=== PATIENT | female | born 1965 | race American Indian/Alaskan Native ===

== ENCOUNTER 2017-07-03 08:45 | Emergency (ER) | payer MEDICARE ==
[2017-07-03 09:26] VITALS: BP 163/84
--- NOTE | 2017-07-03 11:13 | Emergency Department Report ---
ED Rash HPI - HPI Chief Complaint: Skin/Abscess/Foreign Body Stated Complaint: INSECT BITES Time Seen by Provider: 07/03/17 10:44 Duration: 3 Days Location: Back, Abdomen Rash Symptoms: Yes Itching, No Facial Swelling, No Tongue/Oral Swelling, No Breathing Difficulties, No Choking Sensation, No Wheezing/Dyspnea, No Peeling, No Blistering, No Fever, No Lightheaded, No Malaise, No Myalgias Severity: mild, moderate ED Review of Systems ROS: Stated complaint: INSECT BITES Other details as noted in HPI Comment: All other systems reviewed and negative Constitutional: no symptoms reported Respiratory: no symptoms reported Endocrine: no symptoms reported Skin: other (BITES) ED Past Medical Hx - Past Medical History Hx Hypertension: Yes Hx Diabetes: Yes Hx Arthritis: Yes Hx Kidney Stones: Yes Hx Psychiatric Treatment: Yes Additional medical history: Obesity - Surgical History Past Surgical History?: Yes Additional Surgical History: Hernia repair, c section, - Social History Smoking Status: Current Every Day Smoker Substance Use Type: None - Medications Home Medications: Home Medications Medication Instructions Recorded Confirmed Last Taken Type methylPREDNISolone [Medrol] 4 mg PO DAILY #1 tab.ds.pk 07/03/17 Unknown Rx Cephalexin [Keflex] 500 mg PO Q8HR 10 Days #30 cap 07/12/17 Unknown Rx hydrOXYzine HCL [Atarax] 25 mg PO Q6HR PRN 5 Days #20 tablet 07/12/17 Unknown Rx Rash Exam - Exam General: Vital signs noted. No distress. Alert and acting appropriately. HEENT: No Periorbital Edema, No Conjuctival Injection, No Chemosis, No Perioral Edema, No Tongue Edema, No Uvular Edema, No Compromised Airway, No Drooling Lungs: Yes Good Air Exchange, No Wheezes, No Ronchi, No Stridor, No Cough, No Labored Respirations, No Retractions, No Use of Accessory Muscles, No Other Abnormal Lung Sounds Heart: Yes Regular, No Murmur Skin: Yes Erythema (RED FLAT BITE REID ), No Urticarial Rash, No Maculopapular Rash, No Morbilliform rash, No Bulla(e), No Excoriations, No Weeping, No Tenderness, No Edema, No Encrustations Other: Positive: Abdomen Normal, Neurologic Normal, Musculoskeletal Normal ED Course Vital Signs 07/03/17 09:21 Temperature 98.8 F Pulse Rate 96 H Respiratory 16 Rate Blood Pressure 163/84 O2 Sat by Pulse 99 Oximetry - Reevaluation(s) Reevaluation #1: TO ER W RED INSECT BITES ON HER BODY SHE REPORTS SLEEPING IN HOTEL AND TRAVELING NO FEVER NON TOXIC ABC INTACT ITCHING OTC NOT HELPING NO EXPOSURE TO ALLERGEN MEDICATED IN ER DO NOT APPEAR TO BE BED BUGS OR SCABIES DISCUSSED W PT SHE HAS BEEN INSTRUCTED ON WHAT TO WATCH FOR- PROGRESSING, FEVER, INFECTION SHE HAS BEEN ENCOURAGED TO STOP SCRATCHING OR THEY WILL GET INFECTED DC HOME W DC POC ED Medical Decision Making - Medical Decision Making SEE NOTE - Differential Diagnosis RASH RO SCABIES OR BEDBUGS Critical care attestation.: If time is entered above; I have spent that time in minutes in the direct care of this critically ill patient, excluding procedure time. ED Disposition Clinical Impression: Rash, Insect bite Disposition: DC-01 TO HOME OR SELFCARE Is pt being admited?: No Does the pt Need Aspirin: No Condition: Stable Instructions: Acute Rash (ED), Insect Bite or Sting (ED) Additional Instructions: MEDS ORDERED TODAY CONTINUE HOME BENADRYL DO NOT SCRATCH AT BITES FOLLOW UP PCP OR DERM Prescriptions: methylPREDNISolone [Medrol] 4 mg PO DAILY #1 tab.ds.pk Referrals: PRIMARY CARE, [Primary Care Provider] - 3-5 Days Time of Disposition: 11:23
[2017-07-03] MEDS ORDERED: DECADRON IM ONE (11:22)
[2017-07-03] MEDS ORDERED: BENADRYL PO ONE (11:25)
== END 2017-07-03 11:39 | disposition home or self-care (01) ==
LOC: ED 08:45
DX: R21 Rash and other nonspecific skin eruption (principal); I10 Essential (primary) hypertension; E11.9 Type 2 diabetes mellitus without complications; M19.90 Unspecified osteoarthritis, unspecified site; F17.200 Nicotine dependence, unspecified, uncomplicated
CPT/HCPCS: 96372; 99282; J1100

== ENCOUNTER 2017-07-12 20:01 | Emergency (ER) | payer MEDICARE ==
[2017-07-12 20:17] VITALS: BP 155/88
--- NOTE | 2017-07-12 21:07 | Emergency Department Report ---
ED Recheck HPI - General Chief Complaint: Skin Rash Stated Complaint: MED REFILL FOR ALLERGIC REACTION Time Seen by Provider: 07/12/17 21:04 Source: patient Mode of arrival: Ambulatory Limitations: No Limitations - History of Present Illness Initial Comments: here report that she is here for recheck because she has bedbugs in the place that she lived and she has bedbug bites on her legs and she was here on 07 03 for similar problems and was treated with Medrol Dosepak. Patient said she is here to get a refill on the Medrol Dosepak because she still lives in the same area and she will be able to leave until August. Denies any shortness of breath or chest tightness. Denies any wheezing or coughing. Records show the patient was treated for skin rash with Medrol Dosepak on 2013. Patient reports pain and redness to bedbug sites and she is diabetic so she wants to make sure that she is okay. Itching to sites and that she has been scratching at the area. Denies any fever or chills. Complaint: medication refill request Onset/Timin -: days(s) Initial Visit For: other (skin rash) Returns Today for: request for prescription Symptoms Since Prior Visit: worsening redness (report bedbugs inside is not getting better and draining.) Context: ran out of medication Associated Symptoms: rash. denies: fever, chills, chest pain, shortness of breath, malaise, nasuea, abdominal pain Treatments Prior to Arrival: other ( given steroids and initial visit) - Related Data Previous Rx's Medication Instructions Recorded Last Taken Type methylPREDNISolone [Medrol] 4 mg PO DAILY #1 tab.ds.pk 07/03/17 Unknown Rx Cephalexin [Keflex] 500 mg PO Q8HR 10 Days #30 cap 07/12/17 Unknown Rx hydrOXYzine HCL [Atarax] 25 mg PO Q6HR PRN 5 Days #20 tablet 07/12/17 Unknown Rx Allergies Allergy/AdvReac Type Severity Reaction Status Date / Time oxycodone [From Percocet] Allergy Headache Verified 07/03/17 09:21 ED Review of Systems ROS: Stated complaint: MED REFILL FOR ALLERGIC REACTION Other details as noted in HPI Comment: All other systems reviewed and negative Constitutional: no symptoms reported Respiratory: no symptoms reported Cardiovascular: denies: chest pain, palpitations, dyspnea on exertion, edema, syncope, paroxysmal nocturnal dyspnea Gastrointestinal: denies: abdominal pain, nausea, vomiting, constipation, hematemesis, melena Musculoskeletal: denies: back pain, joint swelling, arthralgia, myalgia Skin: rash, pruritus Neurological: denies: headache, numbness, paresthesias, confusion, abnormal gait , vertigo ED Past Medical Hx - Past Medical History Previous Medical History?: Yes Hx Hypertension: Yes Hx Diabetes: Yes Hx Arthritis: Yes Hx Kidney Stones: Yes Hx Psychiatric Treatment: Yes Additional medical history: Obesity - Surgical History Past Surgical History?: Yes Additional Surgical History: Hernia repair, c section, - Family History Family history: diabetes, hypertension - Social History Smoking Status: Current Every Day Smoker Substance Use Type: None - Medications Home Medications: Home Medications Medication Instructions Recorded Confirmed Last Taken Type methylPREDNISolone [Medrol] 4 mg PO DAILY #1 tab.ds.pk 07/03/17 Unknown Rx Cephalexin [Keflex] 500 mg PO Q8HR 10 Days #30 cap 07/12/17 Unknown Rx hydrOXYzine HCL [Atarax] 25 mg PO Q6HR PRN 5 Days #20 tablet 07/12/17 Unknown Rx ED Physical Exam - General Limitations: No Limitations General appearance: alert, in no apparent distress - Head Head exam: Present: atraumatic, normocephalic, normal inspection - ENT ENT exam: Present: normal exam, normal orophraynx, mucous membranes moist - Neck Neck exam: Present: normal inspection, full ROM. Absent: tenderness, meningismus, lymphadenopathy, thyromegaly - Respiratory Respiratory exam: Present: normal lung sounds bilaterally. Absent: respiratory distress, wheezes, rales, rhonchi, stridor, chest wall tenderness - Cardiovascular Cardiovascular Exam: Present: regular rate, normal rhythm, normal heart sounds. Absent: systolic murmur, diastolic murmur - GI/Abdominal GI/Abdominal exam: Present: soft, normal bowel sounds. Absent: distended, tenderness, guarding, rebound, rigid, organomegaly, mass, bruit, pulsatile mass , hernia - Extremities Exam Extremities exam: Present: normal inspection, full ROM, normal capillary refill , other (+2 pulses all extremities. No neurovascular compromise. No clubbing cyanosis or edema.). Absent: tenderness, pedal edema, joint swelling, calf tenderness - Back Exam Back exam: Present: normal inspection, full ROM - Neurological Exam Neurological exam: Present: alert, oriented X3, normal gait - Psychiatric Psychiatric exam: Present: normal affect, normal mood - Skin Skin exam: Present: warm, dry, intact, erythema - Expanded Skin Exam Expanded Distribution of rash: RLE, LLE Description of rash: Present: size (patient would piece size areas to her lower extremities with of erythema ,areas mild swelling around sites, tender to palpate. Sparsely scattered to lower extremity. Appears to be infected. Scant drainage noted.), tenderness, erythematous, swelling, discharge. Absent: macular, papular, vesicular, blisters, confluent, bullous, petechial, purpuic, urticarial, crusting, fluctuant, indurated ED Course Vital Signs 07/12/17 07/12/17 20:05 21:55 Temperature 98.4 F Pulse Rate 113 H 92 H Respiratory 20 Rate Blood Pressure 155/88 [Right] O2 Sat by Pulse 97 Oximetry - Reevaluation(s) Reevaluation #1: 07/12/17 22:00 She is stable throughout ED course. Apical heart rate is at 92 bpm ED Recheck MDM - Medical Decision Making ED course: In here requesting a refill on Medrol Dosepak due to bedbug bite. She was here on 07/03/2017 and was treated for rash and given Medrol Dosepak. Patient says she is still in the same house then and is not limited be able to leave until August. I discussed with her that she needs to remove herself from the area and dictated her on removal of bedbug from her living area. Patient given prescription Keflex for mild cellulitis bilateral lower extremity from insect bite and Atarax for itching. Discharge home from emergency room in stable condition to follow up at [facility] or [facility] in 2-3 days. She Voiced understanding of discharge instruction, treatment plan and need to follow-up. Critical care attestation.: If time is entered above; I have spent that time in minutes in the direct care of this critically ill patient, excluding procedure time. ED Disposition Clinical Impression: Bilateral lower leg cellulitis, Pruritus Insect bite Qualifiers: Encounter type: subsequent encounter Qualified Code(s): W57.XXXD - Bitten or stung by nonvenomous insect and other nonvenomous arthropods, subsequent encounter Disposition: DC-01 TO HOME OR SELFCARE Is pt being admited?: No Does the pt Need Aspirin: No Condition: Stable Instructions: Cellulitis (ED), Insect Bite or Sting (ED), Itchy Skin (ED) Additional Instructions: Please follow instructions on how to get rid of bed bugs Take antibiotic as prescribed Take Atarax for itching and please do not drive or operate heavy machinery while on this medication as it can cause drowsiness follow-up with community resources given to you for primary care visit and management a few chronic medical problems. Follow-up in 2-3 days and call in the morning to schedule an appointment If you develop worsening symptoms, return to the emergency room. Prescriptions: Cephalexin [Keflex] 500 mg PO Q8HR 10 Days #30 cap hydrOXYzine HCL [Atarax] 25 mg PO Q6HR PRN 5 Days #20 tablet PRN Reason: Itching Referrals: PRIMARY CARE, [Primary Care Provider] - 2-3 Days [facility] [Outside] - 2-3 Days
== END 2017-07-12 22:18 | disposition home or self-care (01) ==
LOC: ED 20:01
DX: L03.116 Cellulitis of left lower limb (principal); L03.115 Cellulitis of right lower limb; L29.9 Pruritus, unspecified; I10 Essential (primary) hypertension; E11.9 Type 2 diabetes mellitus without complications; M19.90 Unspecified osteoarthritis, unspecified site; F17.200 Nicotine dependence, unspecified, uncomplicated; Z88.8 Allergy status to other drugs, medicaments and biological substances
CPT/HCPCS: 99282